=== PATIENT | male | born 1975 | race Caucasian/White ===

== ENCOUNTER 2018-04-30 12:03 | Emergency (ER) | payer MEDICAID ==
[~2018-04-30] VITALS: Ht 172.7 cm; Wt 110.0 kg
[2018-04-30 12:45] VITALS: BP 0/0
== END 2018-04-30 14:30 | disposition expired ==
LOC: ER 12:03
DX: I46.9 Cardiac arrest, cause unspecified (principal); C34.90 Malignant neoplasm of unspecified part of unspecified bronchus or lung
CPT/HCPCS: 92950; 99285